=== PATIENT | female | born 1985 | race Caucasian/White ===

== ENCOUNTER → 2019-05-26 09:31 | Outpatient (POV) | payer BC, SELFPAY ==
[2019-05-26 09:41] VITALS: BP 145/78; PULSE 77; RESP 18; O2SAT 98; BMI 41.2
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
== END ==
PROVIDERS: PCP Physician Assistant; Visit Provider Clinical Nurse Specialist Family Health
DX: M47.819 Spondylosis without myelopathy or radiculopathy, site unspecified (principal); G62.9 Polyneuropathy, unspecified
CPT/HCPCS: 99202

== ENCOUNTER → 2019-07-24 17:07 | Outpatient (CLI) | payer BC, SELFPAY ==
[2019-07-24 17:41] LABS: Basophils % 0.7 % (0.1-2.0); Eosinophils # 0.3 K/mm3 (0.0-0.4); Eosinophils % 4.6 % (0.1-12.0); Hematocrit 42.3 % (37.0-47.0); Hemoglobin 13.5 g/dL (12.2-16.2); Lymphocytes % 34.7 % (10-50); Mean Corpuscular HGB Conc 31.9 g/dL (31.8-35.4); Mean Corpuscular Hemoglobin 29.9 pg (27.0-31.2); Mean Corpuscular Volume 93.7 fl (81-99); Monocytes # 0.3 K/mm3 (0.1-1.0); Monocytes % 5.1 % (1.7-9.3); Neutrophils # 3.2 K/mm3 (1.8-7.8); Neutrophils % 54.9 % (37.0-80.0); Platelet Count 376 K/mm3 (142-424); Red Blood Count 4.51 M/mm3 (4.20-5.40); Red Cell Distribution Width 12.6 % (11.5-17.5); White Blood Count 5.8 K/mm3 (4.8-10.8)
[2019-07-24 18:31] LABS: Alanine Aminotransferase 34 U/L (12-78); Albumin/Globulin Ratio 1.1 (1.1-1.8); Alkaline Phosphatase 86 U/L (46-116); Anion Gap 13.1 mEq/L (5-15); Aspartate Amino Transferase 20 U/L (15-37); Bilirubin,Total 0.4 mg/dL (0.2-1.0); Blood Urea Nitrogen 7 mg/dL (7-18); Calcium 9.2 mg/dL (8.5-10.1); Carbon Dioxide 27 mmol/L (21.0-32.0); Chloride 102 mmol/L (98-107); Chol/HDL Ratio 5.5 (1-3.5); Cholesterol 186 mg/dL (140-200); Creatinine,Serum 0.88 mg/dL (0.55-1.02); Estimated Glomerular Filt Rate 74 ml/min (>60); Free T4 (Free Thyroxine) 0.65 ng/dl (0.76-1.46); GFR (African American) 89 ML/MIN (>60); Globulin 3.6 gm/dl (1.3-3.2); Glucose 93 mg/dL (74-106); HDL Cholesterol 34 mg/dL (29-89); LDL Cholesterol 108 mg/dL (0-130); Potassium 4.1 mmoL/L (3.5-5.1); Sodium 138 mmol/L (136-145); Thyroid Stimulating Hormone 4.04 uIU/ml (0.358-3.740); Total Protein,Serum 7.6 gm/dL (6.4-8.2); Triglycerides 222 mg/dL (30-200); VLDL Cholesterol 44 mg/dL (0-40)
[2019-07-26 08:21] LABS: Hep A Ab, IgM Negative (Negative); Hep A Ab, Total Negative (Negative); Hep B Core Ab, Total Negative (Negative)
[2019-07-26 18:05] LABS: Vitamin D 25 Hydroxy 25.4 ng/mL (30.0-100.0)
[2019-07-26 18:06] LABS: Hep B Surface Ab, Qual Non Reactive (.); Hepatitis B Surface Antigen Negative (Negative); Hepatitis C Antibody <0.1 s/co ratio (0.0-0.9)
== END ==
PROVIDERS: Visit Provider Nurse Practitioner Family
DX: E11.9 Type 2 diabetes mellitus without complications (principal); Z79.84 Long term (current) use of oral hypoglycemic drugs; E55.9 Vitamin D deficiency, unspecified; Z11.59 Encounter for screening for other viral diseases
CPT/HCPCS: 80053; 80061; 82652; 83036; 84439; 84443; 85025; 86704; 86706; 86708; 87340; 87380

== ENCOUNTER → 2019-07-31 13:42 | Outpatient (CLI) | payer BC, SELFPAY ==
[2019-07-31 14:30] LABS: Amphetamine/Metha Screen,Urine Negative ng/mL (<1000); Barbiturates Screen,Urine Negative ng/mL (<200); Benzodiazepines Screen,Urine Negative ng/mL (<200); Cannabinoid Screen,Urine Negative ng/mL (<50); Cocaine Screen,Urine Negative ng/mL (<300); Methadone Screen,Urine Negative ng/mL (<300); Opiate Screen,Urine Negative ng/mL (<300); Phencyclidine Screen,Urine Negative ng/mL (<25)
== END ==
PROVIDERS: PCP Nurse Practitioner Family; Visit Provider Nurse Practitioner Family
DX: G62.9 Polyneuropathy, unspecified (principal)
CPT/HCPCS: 80305

== ENCOUNTER → 2019-09-26 14:00 | Outpatient (CLI) | payer BC, SELFPAY ==
[2019-09-26 14:53] LABS: Amphetamine/Metha Screen,Urine Negative ng/mL (<1000); Barbiturates Screen,Urine Negative ng/mL (<200); Benzodiazepines Screen,Urine Negative ng/mL (<200); Cannabinoid Screen,Urine Negative ng/mL (<50); Cocaine Screen,Urine Negative ng/mL (<300); Methadone Screen,Urine Negative ng/mL (<300); Opiate Screen,Urine Negative ng/mL (<300); Phencyclidine Screen,Urine Negative ng/mL (<25)
== END ==
PROVIDERS: Visit Provider Nurse Practitioner Family
DX: Z79.899 Other long term (current) drug therapy (principal)
CPT/HCPCS: 80305

== ENCOUNTER → 2019-10-29 14:44 | Outpatient (CLI) | payer BC, SELFPAY ==
[2019-10-29 15:08] LABS: Basophils % 0.4 % (0.1-2.0); Eosinophils # 0.3 K/mm3 (0.0-0.4); Eosinophils % 3.6 % (0.1-12.0); Hematocrit 42.7 % (37.0-47.0); Hemoglobin 13.3 g/dL (12.2-16.2); Lymphocytes # 2.1 K/mm3 (0.7-4.5); Lymphocytes % 27.3 % (10-50); Mean Corpuscular HGB Conc 31.1 g/dL (31.8-35.4); Mean Corpuscular Hemoglobin 29.4 pg (27.0-31.2); Mean Corpuscular Volume 94.4 fl (81-99); Mean Platelet Volume 8.3 fl (7.4-10.4); Monocytes # 0.4 K/mm3 (0.1-1.0); Monocytes % 5.2 % (1.7-9.3); Neutrophils # 4.9 K/mm3 (1.8-7.8); Neutrophils % 63.4 % (37.0-80.0); Platelet Count 406 K/mm3 (142-424); Red Blood Count 4.52 M/mm3 (4.20-5.40); White Blood Count 7.7 K/mm3 (4.8-10.8)
[2019-10-29 15:35] LABS: Alanine Aminotransferase 36 U/L (12-78); Albumin Level 3.7 gm/dL (3.4-5.0); Alkaline Phosphatase 92 U/L (46-116); Anion Gap 15.3 mEq/L (5-15); Aspartate Amino Transferase 14 U/L (15-37); Bilirubin,Total 0.2 mg/dL (0.2-1.0); Blood Urea Nitrogen 9 mg/dL (7-18); Calcium 9.2 mg/dL (8.5-10.1); Carbon Dioxide 25 mmol/L (21.0-32.0); Chloride 102 mmol/L (98-107); Creatinine,Serum 0.75 mg/dL (0.55-1.02); Estimated Glomerular Filt Rate 88 ml/min (>60); GFR (African American) 107 ML/MIN (>60); Globulin 3.6 gm/dl (1.3-3.2); Glucose 93 mg/dL (74-106); Potassium 4.3 mmoL/L (3.5-5.1); Sodium 138 mmol/L (136-145); T4 (Thyroxine) 6.1 ug/dl (4.7-13.3); Thyroid Stimulating Hormone 1.27 uIU/ml (0.358-3.740); Total Protein,Serum 7.3 gm/dL (6.4-8.2)
== END ==
PROVIDERS: Visit Provider Nurse Practitioner Family
DX: E03.9 Hypothyroidism, unspecified (principal)
CPT/HCPCS: 80053; 84436; 84443; 85025

== ENCOUNTER → 2019-11-28 10:56 | Outpatient (CLI) | payer BC, SELFPAY ==
[2019-11-28 11:15] LABS: Prothrombin Time 10.4 seconds (9.4-11.8)
[2019-11-28 12:16] LABS: Alanine Aminotransferase 37 U/L (12-78); Albumin Level 3.9 gm/dL (3.4-5.0); Albumin/Globulin Ratio 1.1 (1.1-1.8); Alkaline Phosphatase 106 U/L (46-116); Anion Gap 12.8 mEq/L (5-15); Aspartate Amino Transferase 14 U/L (15-37); Bilirubin,Total 0.3 mg/dL (0.2-1.0); Blood Urea Nitrogen 7 mg/dL (7-18); Calcium 9.3 mg/dL (8.5-10.1); Carbon Dioxide 29 mmol/L (21.0-32.0); Chloride 101 mmol/L (98-107); Creatinine,Serum 0.66 mg/dL (0.55-1.02); Estimated Glomerular Filt Rate 103 ml/min (>60); GFR (African American) 124 ML/MIN (>60); Globulin 3.7 gm/dl (1.3-3.2); Glucose 102 mg/dL (74-106); Potassium 3.8 mmoL/L (3.5-5.1); Sodium 139 mmol/L (136-145); Total Protein,Serum 7.6 gm/dL (6.4-8.2)
== END ==
PROVIDERS: Visit Provider Nurse Practitioner Family
DX: R10.11 Right upper quadrant pain (principal); R23.8 Other skin changes
CPT/HCPCS: 36415; 80053; 85610

== ENCOUNTER 2020-03-30 08:59 | Emergency (ER) | payer BC, SELFPAY ==
[2020-03-30 09:08] VITALS: BP 144/84; PULSE 81; RESP 20; TEMP 36.8; O2SAT 98; BMI 38.1
--- NOTE | 2020-03-30 09:17 | CT_ITS ---
PROCEDURE: CT ABDOMEN PELVIS WO CON CLINICAL INDICATION: RUQ PAIN, N/V/D Right upper quadrant pain with nausea, vomiting, diarrhea COMPARISON: No exams were available for comparison TECHNIQUE: Axial images obtained with sagittal and coronal reformats. All CT scans at the facility use one or more dose reduction, viz: automated exposure control, ma/kV adjustment per patient size (including targeted exams where dose is matched to indication, i.e. head), or iterative reconstruction technique. FINDINGS: LOWER THORAX: The there are atelectatic or fibrotic changes within the lingula. There is minimal thickening of the pericardium anteriorly. ABDOMEN & PELVIS: The liver, spleen, adrenal glands and gallbladder have an unremarkable appearance. The there is question of some minimal edema the body of the pancreas. Please correlate with laboratory values regarding the possibility of mild pancreatitis. No peripancreatic fluid collection or phlegmonous change evident. No obvious pancreatic mass. There are nonobstructing punctate bilateral renal calculi. There is minimal prominence of the right ureter. No definite ureteral calculus is evident. The urinary bladder is slightly distended with no obvious calculus in the urinary bladder. No evidence of appendicitis or diverticulitis. No intestinal obstruction or free air. There is a small umbilical hernia which contains fat. Small bone island is present in the left supra-acetabular region. No acute bony findings are evident. No pelvic mass or abnormal fluid collection IMPRESSION: 1. Nonobstructing bilateral renal calculi with minimal ectasia of the right renal collecting system which could be related to recently passed stone. 2. Questionable mild edema of the body of the pancreas. Mild pancreatitis is a consideration. Please correlate with appropriate laboratory values. Dictated by: Jose Montes MD 03/30/2020 11:14 Electronically signed by Jose Montes MD in [place] 03/30/2020 11:14
[2020-03-30 09:32] LABS: Microscopic, Urine URINE MICROSCOPIC (MICROSCOPIC)
[2020-03-30 09:35] LABS: Basophils # 0.1 K/mm3 (0-0.2); Basophils % 0.7 % (0.1-2.0); Eosinophils # 0.3 K/mm3 (0.0-0.4); Eosinophils % 2.9 % (0.1-12.0); Hematocrit 41.8 % (37.0-47.0); Hemoglobin 13.5 g/dL (12.2-16.2); Lymphocytes # 1.8 K/mm3 (0.7-4.5); Lymphocytes % 17.9 % (10-50); Mean Corpuscular HGB Conc 32.2 g/dL (31.8-35.4); Mean Corpuscular Volume 89.9 fl (81-99); Mean Platelet Volume 7.1 fl (7.4-10.4); Monocytes # 0.6 K/mm3 (0.1-1.0); Monocytes % 6.3 % (1.7-9.3); Neutrophils # 7.4 K/mm3 (1.8-7.8); Neutrophils % 72.2 % (37.0-80.0); Platelet Count 393 K/mm3 (142-424); Red Blood Count 4.65 M/mm3 (4.20-5.40); Red Cell Distribution Width 13.5 % (11.5-17.5); White Blood Count 10.3 K/mm3 (4.8-10.8)
[2020-03-30 09:36] LABS: Appearance,Urine CLOUDY (Clear); Bilirubin,Urine Negative (Negative); Blood, Urine 3+ (Negative); Color,Urine ORANGE (Yellow); Glucose,Urine (UA) Negative (Negative); Ketones,Urine Negative (Negative); Leukocyte Esterase,Urine 3+ (Negative); Nitrate,Urine Negative (Negative); Protein,Urine 1+ (Negative); Urobilinogen,Urine 0.2 EU/dl (0.2)
[2020-03-30 09:39] LABS: Chloride 103 mmol/L (98-107); Sodium 138 mmol/L (136-145)
[2020-03-30 09:40] LABS: Potassium 4.3 mmoL/L (3.5-5.1)
[2020-03-30 09:42] LABS: Alanine Aminotransferase 48 U/L (12-78); Alkaline Phosphatase 84 U/L (38-126); Amylase 64 U/L (30-110); Anion Gap 10.3 mEq/L (5-15); Aspartate Amino Transferase 38 U/L (14-36); Bilirubin,Total 0.3 mg/dl (0.2-1.3); Blood Urea Nitrogen 6 mg/dl (7-17); Carbon Dioxide 29 mmol/L (22.0-30.0); Creatinine Clearance Estimated 153 mL/min (50-200); Estimated Glomerular Filt Rate 96 ml/min (>60); GFR (African American) 116 ML/MIN (>60); Glucose 120 mg/dl (74-100); Lipase 40 U/L (23-300)
[2020-03-30 09:43] LABS: Albumin Level 4.7 g/dl (3.5-5.0); Albumin/Globulin Ratio 1.5 (1.1-1.8); Globulin 3.2 g/dL (1.3-3.2); Total Protein,Serum 7.9 g/dl (6.3-8.2)
[2020-03-30 10:02] LABS: Bacteria,Urine 2+ /lpf
[2020-03-30 10:02] LABS: Urine Pregnancy, HCG Qual. Negative (Negative)
--- NOTE | 2020-03-30 10:08 | PC.NURSE ---
called rad for CT neg preg test
--- NOTE | 2020-03-30 10:17 | PC.NURSE ---
PT TO RAD
--- NOTE | 2020-03-30 10:40 | PC.NURSE ---
PT RETURNING FROM RAD
--- NOTE | 2020-03-30 11:39 | HMH.EDABDPAI ---
ED Disposition Clinical Impression: Gastroenteritis Disposition: Home, Self-Care Condition on Discharge: Good Instructions: DI for Acute Abdomen Prescriptions: Promethazine HCl 50 mg PO TID 6 Days #20 tab Transmission Status: [facility] Referrals: Azam Aj MD [Primary Care Provider] - - Critical Care Critical Care Time: No Attestation: On 03/30/20, the high probability of a clinically significant, sudden or life threatening deterioration of the following system(s) required my full and direct attention, intervention and personal management. The time I documented below is in addition to time spent performing reported procedures but includes the following listed in this critical care notation. Medical Decision Making - Medical Records Medical records reviewed: Yes: I reviewed the patient's medical records. - Arnold Inquiry Pt receiving controlled substance: No Vital Signs: 03/30/20 09:08 Temperature 98.3 F Temperature Source Oral Pulse Rate [Right Radial] 81 Respiratory Rate 20 Blood Pressure [Right Arm] 144/84 H Blood Pressure Mean [Right Arm] 104 Blood Pressure Source [Right Arm] Automatic Cuff Blood Pressure Position [Right Arm] Sitting 02 Sat by Pulse Oximetry 98 Oxygen Delivery Method Room Air - Lab Data Lab results reviewed: Yes: I reviewed the patient's lab results. Lab Results 03/30/20 09:11: Urine Color [facility], Urine Appearance Cloudy, Urine pH 8.0, Ur Specific [place] 1.010, Urine Protein 1+, Urine Glucose (UA) Negative, Urine Ketones Negative, Urine Blood 3+, Urine Nitrate Negative, Urine Bilirubin Negative, Urine Urobilinogen 0.2, Ur Leukocyte Esterase 3+ A, Urine RBC 10-20, Urine WBC 10-20, Ur Squamous Epith Cells 5-10, Urine Bacteria 2+ 03/30/20 09:11: WBC 10.3, RBC 4.65, Hgb 13.5, Hct 41.8, MCV 89.9, MCH 29.0, MCHC 32.2, RDW 13.5, Plt Count 393, MPV 7.1 L, Neut % (Auto) 72.2, Lymph % (Auto) 17.9, [place] % (Auto) 6.3, Eos % (Auto) 2.9, Baso % (Auto) 0.7, Neut # (Auto) 7.4, Lymph # (Auto) 1.8, [place] # (Auto) 0.6, Eos # (Auto) 0.3, Baso # (Auto) 0.1 03/30/20 09:11: Sodium 138, Potassium 4.3, Chloride 103, Carbon Dioxide 29, Anion Gap 10.3, BUN 6 L, Creatinine 0.70, Estimated Creat Clear 153, Estimated GFR 96, Est GFR ( Amer) 116, Glucose 120 H, Calcium 10.0, Total Bilirubin 0.3, AST 38 H, ALT 48, Alkaline Phosphatase 84, Total Protein 7.9, Albumin 4.7, Globulin 3.2, Albumin/Globulin Ratio 1.5, Amylase 64, Lipase 40 03/30/20 09:23: Urine HCG, Qual Negative Result diagrams: 03/30/20 09:11 03/30/20 09:11 Orders (Tests/Meds): ED MEDICATIONS Discontinued Medications Generic Name Dose Route Start Last Admin Trade Name Freq PRN Reason Stop Dose Admin Sodium Chloride 1,000 mls @ 999 mls/hr 03/30/20 09:19 03/30/20 09:28 Sod Chlor 0.9% 1000ml Bag IV 03/30/20 10:19 999 mls/hr .Q1H1M ONE Administration Ketorolac Tromethamine 30 mg 03/30/20 09:18 03/30/20 09:28 Toradol 30mg/Ml Vial IV 03/30/20 09:19 30 mg ONCE ONE Administration Ondansetron HCl 4 mg 03/30/20 09:18 03/30/20 09:28 Zofran 4mg/2ml Vial IV 03/30/20 09:19 4 mg ONCE ONE Administration ORDERS Category Date Time Status Urine Culture Stat Micro 03/30/20 09:11 Received - CT Data CT Scan: Abdomen, Pelvis Time Received: 11:00 Preliminary Findings: Abnormal (Patient is some inflammation in the right sided renal collecting duct system indication she could have passed a stone. She also has some slight inflammation of the pancreas but no evidence of acute pancreatitis.) Abdominal Pain HPI - General Chief Complaint: Abdominal Pain Stated Complaint: R side pain going into back V/d Time Seen by Provider: 03/30/20 11:00 Mode of Arrival: Ambulatory Source of Information: Patient Limitations: No Limitations Description of Symptoms (Recalled from ER Triage Doc. by RN): PT C/O RUQ PAIN EXTENDING INTO THE RT SIDE OF HER BACK X3 DAYS. PT C/O ACCOMPANYING IN
[2020-03-30 11:47] VITALS: BP 125/85; PULSE 85; RESP 20; TEMP 36.8; O2SAT 98
== END 2020-03-30 12:02 | disposition home or self-care (01) ==
PROVIDERS: Emergency Provider Family Medicine; PCP Emergency Medicine
DX: K52.9 Noninfective gastroenteritis and colitis, unspecified (principal); I10 Essential (primary) hypertension; E78.5 Hyperlipidemia, unspecified; E11.9 Type 2 diabetes mellitus without complications; Z79.84 Long term (current) use of oral hypoglycemic drugs; Z79.899 Other long term (current) drug therapy; F17.210 Nicotine dependence, cigarettes, uncomplicated; Z88.5 Allergy status to narcotic agent; Z88.8 Allergy status to other drugs, medicaments and biological substances
CPT/HCPCS: 74176; 80053; 81001; 81025; 82150; 83690; 85025; 87086; 87088; 96365; 96375; 99283; J2405

== ENCOUNTER → 2020-05-20 13:32 | Outpatient (CLI) | payer BC, SELFPAY ==
[2020-05-20 13:44] LABS: Basophils % 0.4 % (0.1-2.0); Eosinophils # 0.3 K/mm3 (0.0-0.4); Eosinophils % 4.2 % (0.1-12.0); Hematocrit 38.3 % (37.0-47.0); Hemoglobin 13.2 g/dL (12.2-16.2); Lymphocytes % 30.2 % (10-50); Mean Corpuscular HGB Conc 34.5 g/dL (31.8-35.4); Mean Corpuscular Hemoglobin 31.4 pg (27.0-31.2); Mean Platelet Volume 8.2 fl (7.4-10.4); Monocytes # 0.4 K/mm3 (0.1-1.0); Monocytes % 6.5 % (1.7-9.3); Neutrophils # 3.9 K/mm3 (1.8-7.8); Neutrophils % 58.8 % (37.0-80.0); Platelet Count 333 K/mm3 (142-424); Red Blood Count 4.21 M/mm3 (4.20-5.40); Red Cell Distribution Width 13.7 % (11.5-17.5); White Blood Count 6.6 K/mm3 (4.8-10.8)
[2020-05-20 13:46] LABS: Chloride 104 mmol/L (98-107); Sodium 136 mmol/L (136-145)
[2020-05-20 13:47] LABS: Potassium 4.1 mmoL/L (3.5-5.1)
[2020-05-20 13:49] LABS: Alanine Aminotransferase 26 U/L (12-78); Albumin Level 4.2 g/dl (3.5-5.0); Albumin/Globulin Ratio 1.4 (1.1-1.8); Alkaline Phosphatase 72 U/L (38-126); Anion Gap 12.1 mEq/L (5-15); Aspartate Amino Transferase 26 U/L (14-36); Bilirubin,Total 0.6 mg/dl (0.2-1.3); Blood Urea Nitrogen 9 mg/dl (7-17); Calcium 9.7 mg/dl (8.4-10.2); Carbon Dioxide 24 mmol/L (22.0-30.0); Cholesterol 169 mg/dl (140-200); Estimated Glomerular Filt Rate 114 ml/min (>60); GFR (African American) 138 ML/MIN (>60); Glucose 118 mg/dl (74-100); Total Protein,Serum 7.2 g/dl (6.3-8.2); Triglycerides 212 mg/dl (30-150); VLDL Cholesterol 42 mg/dL (0-40)
[2020-05-20 13:50] LABS: Chol/HDL Ratio 4.6 (1-3.5); HDL Cholesterol 37 mg/dl (40-60)
[2020-05-20 14:01] LABS: Direct LDL Cholesterol 99.27 mg/dL (100-129)
[2020-05-20 14:02] LABS: Creatinine,Urine Random 37 mg/dL (Not Estab.); Microalbumin < 6.000 mg/L (0-16.7)
[2020-05-20 14:08] LABS: Hemoglobin A1C 6.3 % (4.0-6.0)
[2020-05-20 14:19] LABS: Thyroid Stimulating Hormone 1.61 uIU/mL (0.465-4.68)
== END ==
PROVIDERS: Visit Provider Nurse Practitioner Family
DX: E11.9 Type 2 diabetes mellitus without complications (principal); Z79.84 Long term (current) use of oral hypoglycemic drugs
CPT/HCPCS: 80053; 80061; 82043; 82570; 83036; 84436; 84443; 85025

== ENCOUNTER → 2021-02-25 17:01 | Outpatient (CLI) | payer BC, SELFPAY ==
[2021-02-25 17:47] LABS: Basophils % 0.8 % (0.1-2.0); Eosinophils # 0.3 K/mm3 (0.0-0.4); Eosinophils % 6.2 % (0.1-12.0); Hematocrit 39.3 % (37.0-47.0); Hemoglobin 13.2 g/dL (12.2-16.2); Lymphocytes # 1.5 K/mm3 (0.7-4.5); Lymphocytes % 28.9 % (10-50); Mean Corpuscular HGB Conc 33.5 g/dL (31.8-35.4); Mean Corpuscular Hemoglobin 30.8 pg (27.0-31.2); Mean Corpuscular Volume 92.1 fl (81-99); Mean Platelet Volume 7.8 fl (7.4-10.4); Monocytes # 0.5 K/mm3 (0.1-1.0); Monocytes % 9.7 % (1.7-9.3); Neutrophils # 2.8 K/mm3 (1.8-7.8); Neutrophils % 54.4 % (37.0-80.0); Platelet Count 299 K/mm3 (142-424); Red Blood Count 4.27 M/mm3 (4.20-5.40); Red Cell Distribution Width 13.9 % (11.5-17.5); White Blood Count 5.2 K/mm3 (4.8-10.8)
[2021-02-25 17:50] LABS: Alanine Aminotransferase 50 U/L (12-78); Albumin Level 4.1 g/dl (3.5-5.0); Albumin/Globulin Ratio 1.4 (1.1-1.8); Alkaline Phosphatase 95 U/L (38-126); Aspartate Amino Transferase 53 U/L (14-36); Bilirubin,Total 0.3 mg/dl (0.2-1.3); Blood Urea Nitrogen 4 mg/dl (7-17); Calcium 9.6 mg/dl (8.4-10.2); Carbon Dioxide 26 mmol/L (22.0-30.0); Chloride 104 mmol/L (98-107); Chol/HDL Ratio 3.6 (1-3.5); Cholesterol 160 mg/dl (140-200); Estimated Glomerular Filt Rate 114 ml/min (>60); GFR (African American) 138 ML/MIN (>60); Globulin 2.9 g/dL (1.3-3.2); Glucose 107 mg/dl (74-100); HDL Cholesterol 45 mg/dl (40-60); Sodium 138 mmol/L (136-145); Triglycerides 234 mg/dl (30-150); VLDL Cholesterol 47 mg/dL (0-40)
[2021-02-25 17:56] LABS: Creatinine,Urine Random 33 mg/dL (Not Estab.)
[2021-02-25 18:01] LABS: Microalbumin/Creatinine Ratio 18.7
[2021-02-25 18:05] LABS: Direct LDL Cholesterol 80.44 mg/dL (100-129)
[2021-02-25 18:07] LABS: T4 (Thyroxine) 5.8 ug/dl (5.53-11.0)
[2021-02-25 18:08] LABS: 25-OH Vitamin D, Total 33.7 ng/mL (30-100)
[2021-02-25 18:21] LABS: Thyroid Stimulating Hormone 2.21 uIU/mL (0.465-4.68)
== END ==
PROVIDERS: Visit Provider Nurse Practitioner Family
DX: E11.9 Type 2 diabetes mellitus without complications (principal); G62.9 Polyneuropathy, unspecified; I35.0 Nonrheumatic aortic (valve) stenosis; J44.9 Chronic obstructive pulmonary disease, unspecified; Z79.84 Long term (current) use of oral hypoglycemic drugs; Z79.899 Other long term (current) drug therapy; Z68.42 Body mass index [BMI] 45.0-49.9, adult
CPT/HCPCS: 80053; 80061; 82043; 82306; 82570; 84436; 84443; 85025

== ENCOUNTER → 2021-04-13 12:32 | Outpatient (CLI) | payer BC, SELFPAY ==
--- NOTE | 2021-04-13 12:35 | XR_ITS ---
PROCEDURE: XR KNEE RT 4V CLINICAL INDICATION: right knee pain COMPARISON: No exams were available for comparison FINDINGS: No fracture or dislocation. No lytic or blastic change. There is normal mineralization. The joint spaces are well-preserved. No significant degenerative/arthritic changes. No erosive changes evident. Other findings:None. IMPRESSION: No acute findings. Dictated by: Jose Montes MD 04/13/2021 12:49 Jose Montes MD in [facility] 04/13/2021 12:49
== END ==
PROVIDERS: PCP Nurse Practitioner Family; Visit Provider Orthopaedic Surgery
DX: M25.561 Pain in right knee (principal)
CPT/HCPCS: 73564

== ENCOUNTER → 2021-07-06 14:11 | Outpatient (CLI) | payer BC, SELFPAY ==
[2021-07-06 14:24] LABS: Alanine Aminotransferase 100 U/L (12-78); Albumin Level 4.4 g/dl (3.5-5.0); Albumin/Globulin Ratio 1.6 (1.1-1.8); Alkaline Phosphatase 100 U/L (38-126); Anion Gap 13.5 mEq/L (5-15); Aspartate Amino Transferase 97 U/L (14-36); Bilirubin,Total 0.5 mg/dl (0.2-1.3); Blood Urea Nitrogen 9 mg/dl (7-17); Calcium 9.7 mg/dl (8.4-10.2); Carbon Dioxide 26 mmol/L (22.0-30.0); Chloride 104 mmol/L (98-107); Chol/HDL Ratio 3.6 (1-3.5); Cholesterol 149 mg/dl (140-200); Estimated Glomerular Filt Rate 113 ml/min (>60); GFR (African American) 137 ML/MIN (>60); Globulin 2.7 g/dL (1.3-3.2); Glucose 85 mg/dl (74-100); HDL Cholesterol 41 mg/dl (40-60); Potassium 4.5 mmoL/L (3.5-5.1); Sodium 139 mmol/L (136-145); Total Protein,Serum 7.1 g/dl (6.3-8.2); Triglycerides 160 mg/dl (30-150); VLDL Cholesterol 32 mg/dL (0-40)
[2021-07-06 14:53] LABS: Basophils # 0.1 K/mm3 (0-0.2); Basophils % 0.7 % (0.1-2.0); Eosinophils # 0.2 K/mm3 (0.0-0.4); Eosinophils % 2.8 % (0.1-12.0); Hematocrit 42.6 % (37.0-47.0); Hemoglobin 14.2 g/dL (12.2-16.2); Lymphocytes # 2.5 K/mm3 (0.7-4.5); Lymphocytes % 30.4 % (10-50); Mean Corpuscular HGB Conc 33.4 g/dL (31.8-35.4); Mean Corpuscular Hemoglobin 29.3 pg (27.0-31.2); Mean Corpuscular Volume 87.8 fl (81-99); Mean Platelet Volume 8.1 fl (7.4-10.4); Monocytes # 0.5 K/mm3 (0.1-1.0); Monocytes % 6.3 % (1.7-9.3); Neutrophils # 4.9 K/mm3 (1.8-7.8); Neutrophils % 59.7 % (37.0-80.0); Platelet Count 338 K/mm3 (142-424); Red Blood Count 4.85 M/mm3 (4.20-5.40); Red Cell Distribution Width 13.6 % (11.5-17.5); White Blood Count 8.1 K/mm3 (4.8-10.8)
[2021-07-06 14:55] LABS: Thyroid Stimulating Hormone 2.85 uIU/mL (0.465-4.68)
[2021-07-06 15:59] LABS: Hemoglobin A1C 6.4 % (4.0-6.0)
== END ==
PROVIDERS: Visit Provider Nurse Practitioner Family
DX: Z00.00 Encounter for general adult medical examination without abnormal findings (principal); Z79.899 Other long term (current) drug therapy
CPT/HCPCS: 80053; 80061; 83036; 84443; 85025

== ENCOUNTER 2022-01-14 11:19 | Emergency (ER) | payer BC, SELFPAY ==
[2022-01-14] VITALS (8 sets, daily range): BP systolic 113–133; BP diastolic 66–84; PULSE 78–96; RESP 12–18; TEMP 36.6–37.1; O2SAT 94–100; BMI 44.0
--- NOTE | 2022-01-14 11:17 | ECG_ITS ---
APPROVED REPORT Exam: Resting ECG HR:93 bpm ECG Measurements Heart Rate 93 AXES FL 136 P 62 QRSd 87 QRS 60 QT 326 T 55 QTc 376 Conclusion SINUS RHYTHM LOW QRS VOLTAGE IN PRECORDIAL LEADS [QRS DEFLECTION < 1.0 mV IN CHEST LEADS] BORDERLINE ECG UNCONFIRMED REPORT Electronically signed by : Vineet Washington MD 01/14/2022 18:39:07
--- NOTE | 2022-01-14 11:32 | XR_ITS ---
PROCEDURE INFORMATION: Exam: XR Chest Exam date and time: 01/14/2022 11:32 AM Age: 36 years old Clinical indication: Shortness of breath; Additional info: praveena GARCIA TECHNIQUE: Imaging protocol: XR of the chest. Views: 1 view. COMPARISON: No relevant prior studies available. FINDINGS: Tubes, catheters and devices: NG tube tip partially seen, the distal portion of the tube is not identified. Lungs: Unremarkable. No consolidation. Pleural spaces: Unremarkable. No pleural effusion. No pneumothorax. Heart/Mediastinum: Unremarkable. No cardiomegaly. Bones/joints: No acute findings. IMPRESSION: No acute pulmonary findings.
[2022-01-14 11:43] LABS: Basophils # 0.1 K/mm3 (0-0.2); Basophils % 0.7 % (0.1-2.0); Eosinophils # 0.2 K/mm3 (0.0-0.4); Eosinophils % 2.5 % (0.1-12.0); Hematocrit 42.2 % (37.0-47.0); Hemoglobin 13.6 g/dL (12.2-16.2); Lymphocytes # 1.9 K/mm3 (0.7-4.5); Lymphocytes % 26.1 % (10-50); Mean Corpuscular HGB Conc 32.3 g/dL (31.8-35.4); Mean Corpuscular Hemoglobin 30.1 pg (27.0-31.2); Mean Corpuscular Volume 93.3 fl (81-99); Mean Platelet Volume 7.4 fl (7.4-10.4); Monocytes # 0.4 K/mm3 (0.1-1.0); Monocytes % 5.9 % (1.7-9.3); Neutrophils # 4.8 K/mm3 (1.8-7.8); Neutrophils % 64.8 % (37.0-80.0); Platelet Count 291 K/mm3 (142-424); Red Blood Count 4.52 M/mm3 (4.20-5.40); White Blood Count 7.4 K/mm3 (4.8-10.8)
--- NOTE | 2022-01-14 11:45 | PC.NURSE ---
Notified RT of neb order
[2022-01-14 11:51] LABS: Chloride 98 mmol/L (98-107)
[2022-01-14 11:52] LABS: Potassium 4.1 mmoL/L (3.5-5.1); Sodium 133 mmol/L (136-145)
[2022-01-14 11:55] LABS: Anion Gap 11.1 mEq/L (5-15); Blood Urea Nitrogen 9 mg/dl (7-17); Calcium 8.8 mg/dl (8.4-10.2); Carbon Dioxide 28 mmol/L (22.0-30.0); Creatinine Clearance Estimated 88 mL/min (50-200); Estimated Glomerular Filt Rate 113 ml/min (>60); GFR (African American) 137 ML/MIN (>60); Glucose 184 mg/dl (74-100)
[2022-01-14 12:25] LABS: Troponin I < 0.01 ng/ml (0.00-0.034)
--- NOTE | 2022-01-14 12:33 | HMH.EDCP ---
ED Disposition Clinical Impression: Atypical chest pain, Dyspepsia Disposition: Home, Self-Care Condition on Discharge: Good Instructions: DI for Atypical Chest Pain Prescriptions: Promethazine HCl [Phenergan 25mg tab] 25 mg PO BID #12 tab Transmission Status: Pending to [facility] Referrals: Azam Aj MD [Primary Care Provider] - - Critical Care Critical Care Time: No Attestation: On 01/14/22, the high probability of a clinically significant, sudden or life threatening deterioration of the following system(s) required my full and direct attention, intervention and personal management. The time I documented below is in addition to time spent performing reported procedures but includes the following listed in this critical care notation. Medical Decision Making - Medical Records Medical records reviewed: Yes: I reviewed the patient's medical records. - Arnold Inquiry Pt receiving controlled substance: No Vital Signs: 01/14/22 11:19 01/14/22 11:30 01/14/22 12:00 Temperature 98.8 F Temperature Source Oral Pulse Rate 84 87 Pulse Rate [Right Radial] 96 H Respiratory Rate 18 17 12 Blood Pressure 127/69 113/66 Blood Pressure [Right Arm] 133/78 Blood Pressure Mean 96 81 Blood Pressure Mean [Right Arm] 96 Blood Pressure Source [Right Arm] Automatic Cuff Blood Pressure Position [Right Arm] Sitting 02 Sat by Pulse Oximetry 98 98 100 Oxygen Delivery Method Room Air 01/14/22 12:14 01/14/22 12:30 Temperature Temperature Source Pulse Rate 93 H Pulse Rate [Right Radial] Respiratory Rate 18 Blood Pressure 118/72 Blood Pressure [Right Arm] Blood Pressure Mean 87 Blood Pressure Mean [Right Arm] Blood Pressure Source [Right Arm] Blood Pressure Position [Right Arm] 02 Sat by Pulse Oximetry 99 95 Oxygen Delivery Method Room Air - Lab Data Lab Results 01/14/22 11:20: WBC 7.4, RBC 4.52, Hgb 13.6, Hct 42.2, MCV 93.3, MCH 30.1, MCHC 32.3, RDW 13.0, Plt Count 291, MPV 7.4, Neut % (Auto) 64.8, Lymph % (Auto) 26.1, [place] % (Auto) 5.9, Eos % (Auto) 2.5, Baso % (Auto) 0.7, Neut # (Auto) 4.8, Lymph # (Auto) 1.9, [place] # (Auto) 0.4, Eos # (Auto) 0.2, Baso # (Auto) 0.1 01/14/22 11:20: Sodium 133 L, Potassium 4.1, Chloride 98, Carbon Dioxide 28, Anion Gap 11.1, BUN 9, Creatinine 0.60, Estimated Creat Clear 88, Estimated GFR 113, Est GFR ( Amer) 137, Glucose 184 H, Calcium 8.8, Troponin I < 0.01 Result diagrams: 01/14/22 11:20 01/14/22 11:20 Orders (Tests/Meds): ED MEDICATIONS Generic Name Dose Route Start Last Admin Trade Name Freq PRN Reason Stop Dose Admin Sodium Chloride 10 ml 01/14/22 11:32 Sodium Chloride 0.9% 10ml Flush Syringe IV 02/13/22 11:31 NEEDED PRN Maintain IV Site Sodium Chloride 8 ml 01/14/22 11:56 Sodium Chloride 0.9% 10ml Vial IV 02/13/22 11:55 NEEDED PRN dilute pepcid Discontinued Medications Generic Name Dose Route Start Last Admin Trade Name Freq PRN Reason Stop Dose Admin Albuterol/Ipratropium 3 ml 01/14/22 11:41 01/14/22 12:12 Ipratropium/Albuterol 3 Ml Neb IH 01/14/22 11:42 3 ml ONCE ONE Administration Famotidine 20 mg 01/14/22 11:56 Famotidine 20mg/2ml Vial IV 01/14/22 11:57 ONCE ONE ORDERS Category Date Time Status Troponin I Q3H Lab 01/14/22 14:45 Ordered Troponin I Q3H Lab 01/14/22 17:45 Ordered - Radiology Data #1 Image(s): Chest Image Reviewed: Yes I reviewed the patient's radiology results, Yes I reviewed the patient's radiology image, Yes I have reviewed radiologist's interpretation Preliminary Findings: Normal/NAD - ECG Data Tracing #1 I reviewed this ECG and interpreted as documented below: ECG initial impression date: 01/14/22 ECG initial impression time: 11:17 ECG normal with no acute: arrhythmias, ischemia, conduction abnormalities, chamber hypertrophy Normal Sinus Rhythm: Yes - Reevaluation(s) Time: 1
== END 2022-01-14 14:15 | disposition home or self-care (01) ==
PROVIDERS: Emergency Provider Emergency Medicine; PCP Emergency Medicine
DX: R07.89 Other chest pain (principal); R10.13 Epigastric pain; E11.9 Type 2 diabetes mellitus without complications; E78.5 Hyperlipidemia, unspecified; I10 Essential (primary) hypertension; F17.210 Nicotine dependence, cigarettes, uncomplicated
CPT/HCPCS: 71045; 80048; 84484; 85025; 93005; 96365; 96375; 99283; 99284

== ENCOUNTER → 2022-01-18 13:53 | Outpatient (CLI) | payer BC, SELFPAY ==
[2022-01-18 17:27] LABS: Alanine Aminotransferase 24 U/L (12-78); Albumin Level 4.4 g/dl (3.5-5.0); Albumin/Globulin Ratio 1.6 (1.1-1.8); Alkaline Phosphatase 96 U/L (38-126); Anion Gap 13.7 mEq/L (5-15); Aspartate Amino Transferase 30 U/L (14-36); Bilirubin,Total 0.4 mg/dl (0.2-1.3); Blood Urea Nitrogen 8 mg/dl (7-17); Calcium 9.5 mg/dl (8.4-10.2); Carbon Dioxide 30 mmol/L (22.0-30.0); Chloride 99 mmol/L (98-107); Chol/HDL Ratio 4.5 (1-3.5); Cholesterol 195 mg/dl (140-200); Estimated Glomerular Filt Rate 113 ml/min (>60); GFR (African American) 137 ML/MIN (>60); Globulin 2.8 g/dL (1.3-3.2); Glucose 125 mg/dl (74-100); HDL Cholesterol 43 mg/dl (40-60); Potassium 4.7 mmoL/L (3.5-5.1); Sodium 138 mmol/L (136-145); Total Protein,Serum 7.2 g/dl (6.3-8.2); Triglycerides 380 mg/dl (30-150); VLDL Cholesterol 76 mg/dL (0-40)
[2022-01-18 17:34] LABS: Basophils % 0.5 % (0.1-2.0); Eosinophils # 0.2 K/mm3 (0.0-0.4); Eosinophils % 2.5 % (0.1-12.0); Hematocrit 43.2 % (37.0-47.0); Hemoglobin 13.6 g/dL (12.2-16.2); Lymphocytes # 1.9 K/mm3 (0.7-4.5); Lymphocytes % 23.9 % (10-50); Mean Corpuscular HGB Conc 31.6 g/dL (31.8-35.4); Mean Corpuscular Hemoglobin 30.6 pg (27.0-31.2); Mean Platelet Volume 8.4 fl (7.4-10.4); Monocytes # 0.5 K/mm3 (0.1-1.0); Monocytes % 6.8 % (1.7-9.3); Neutrophils # 5.3 K/mm3 (1.8-7.8); Neutrophils % 66.3 % (37.0-80.0); Platelet Count 312 K/mm3 (142-424); Red Blood Count 4.45 M/mm3 (4.20-5.40); Red Cell Distribution Width 13.7 % (11.5-17.5); White Blood Count 7.9 K/mm3 (4.8-10.8)
[2022-01-18 17:40] LABS: Direct LDL Cholesterol 91.12 mg/dL (100-129)
[2022-01-18 17:44] LABS: T4 (Thyroxine) 5.5 ug/dl (5.53-11.0)
[2022-01-18 20:14] LABS: Hemoglobin A1C 7.2 % (4.0-6.0)
== END ==
PROVIDERS: Visit Provider Nurse Practitioner Family
DX: E11.9 Type 2 diabetes mellitus without complications (principal); G62.9 Polyneuropathy, unspecified; Z79.84 Long term (current) use of oral hypoglycemic drugs
CPT/HCPCS: 80053; 80061; 83036; 84436; 84443; 85025